=== PATIENT | female | born 1985 | race Caucasian/White ===

== ENCOUNTER 2021-09-08 16:28 | Emergency (ER) | payer MEDICAID ==
[~2021-09-08] VITALS: Ht 168 cm; Wt 79.0 kg
[2021-09-08] MEDS ORDERED: KETOROLAC 30 MG/ML VIAL IVP ONE (17:15)
[2021-09-08] MEDS ORDERED: NS IV 1000 ML 1,000 ML IV SCH (17:15)
[2021-09-08] MEDS ORDERED: ONDANSETRON 4 MG/2 ML (SDV) Z0FRAN IVP ONE (17:15)
[2021-09-08] MEDS ORDERED: GLYCOPYRROLATE 0.2 MG/ML (ROBINUL) 2 ML VIAL IV ONE (17:15)
--- NOTE | 2021-09-08 17:16 | ED Abdominal Pain ---
General Chief Complaint: - Reproductive Stated Complaint: R SIDE PAIN/URINARY PRESSURE/VOMITING Nursing Triage Note: pt states 90 min [employer] started having rt side pain front and back, difficulty urinating just started. Source of Information: Patient Exam Limitations: No Limitations History of Present Illness Date Seen by Provider: Sep 08, 2021 Time Seen by Provider: 17:05 Initial Comments Patient is a 35-year-old female who presents to the emergency department with a chief complaint of right flank pain onset a couple of hours prior to arrival. Patient states she has developed nausea with several bouts of vomiting. She has the urge to urinate but cannot. She denies any GI symptoms other than the vomiting. She has never had pain like this before. Nothing really makes it any better or any worse. She rates it at a "6". She has a history of endometriosis with irregular menstrual cycles. Denies abnormal vaginal discharge. Denies burning with urination. Has the urgency. No fevers, chills, cough or congestion. No prior abdominal surgeries. All other review of systems reviewed and negative except as stated Timing/Duration: 1-3 Hours Severity/Quality: Moderate, Aching Location: RLQ, Flank Radiation: Back Associated Symptoms: Back Pain, Nausea/Vomiting Allergies and Home Medications Allergies Coded Allergies: No Known Drug Allergies (Unverified , 09/08/21) Patient Home Medication List Home Medication List Reviewed: Yes Hydrocodone/Acetaminophen (Hydrocodone-Acetamin 5-325 mg) 5 Mg-325 Mg Tablet, 1 TAB PO Q6H PRN for PAIN-MODERATE (5-7) Prescribed by: LETTY MOSS on 09/08/211807 Ondansetron (Ondansetron Odt) 4 Mg Tab.rapdis, 4 MG PO Q8H PRN for nausea Prescribed by: LETTY MOSS on 09/08/211806 Tamsulosin HCl (Flomax) 0.4 Mg Cap, 0.4 MG PO HS Prescribed by: LETTY MOSS on 09/08/211806 Review of Systems Review of Systems Constitutional: see HPI EENTM: No Symptoms Reported Respiratory: No Symptoms Reported Cardiovascular: No Symptoms Reported Gastrointestinal: Abdominal Pain, Nausea, Vomiting Genitourinary: Urgency Musculoskeletal: back pain Skin: no symptoms reported All Other Systems Reviewed Negative Unless Noted: Yes Past Tglcvji-Wbxwwl-Ejcmal Hx Patient Social History Tobacco Use?: No Substance use?: No Alcohol Use?: Yes Alcohol type: Beer, Wine Alcohol Frequency: Rarely Immunizations Up To Date COVID19 Vaccine [employer]: [email or web address] Past Medical History Surgery/Hospitalization HX: ear Last Menstrual Period: August 08, 2021 Physical Exam Vital Signs Vital Signs - First Documented 09/08/21 16:52 Temp 36.9 Pulse 60 Resp 22 B/P (MAP) 129/81 (97) Pulse Ox 99 O2 Delivery Room Air Capillary Refill : Less Than 3 Seconds Height/Weight/BMI Height: '" Weight: lbs. oz. kg; 27.00 BMI Method: General Appearance: WD/WN, mild distress HEENT: PERRL/EOMI Respiratory: lungs clear, normal breath sounds, no respiratory distress, no accessory muscle use Cardiovascular: regular rate, rhythm Gastrointestinal: soft, tenderness (mild tenderness RLQ) Extremities: normal range of motion, non-tender, normal inspection, no pedal edema, normal capillary refill Back: CVA tenderness (R) (mild) Neurologic/Psychiatric: alert, normal mood/affect, oriented x 3, other (slightly anxious) Skin: normal color, warm/dry Progress/Results/Core Measures Results/Orders Lab Results Laboratory Tests Test 09/08/21 17:17 09/08/21 17:20 Range/Units Sodium Level 138 135-145 MMOL/L Potassium Level 3.6 3.6-5.0 MMOL/L Chloride Level 105 98-107 MMOL/L Carbon Dioxide Level 22 21-32 MMOL/L Anion Gap 11 5-14 MMOL/L Blood Urea Nitrogen 13 7-18 MG/DL Creatinine 0.95 0.60-1.30 MG/DL Estimat Glomerular Filtration Rate 79 BUN/Creatinine Ratio 14 Glucose Level 100 70-105 MG/DL Calcium Level 9.1 8.5-10.1 MG/DL Urine Color YELLOW Urine Clarity CLEAR Urine pH 5.0 5-9 Urine Specific Preston >=1.030 1.016-1.022 Urine Protein NEGATIVE NEGATIVE Urine Glucose (UA) NEGATIVE NEGATIVE Urine Ketones TRACE H NEGATIVE Urine Nitrite NEGATIVE NEGATIVE Urine Bilirubin NEGATIVE NEGATIVE Urine Urobilinogen 0.2 < = 1.0 MG/DL Urine Leukocyte Esterase NEGATIVE NEGATIVE Urine RBC (Auto) NEGATIVE NEGATIVE Urine RBC NONE /HPF Urine WBC RARE /HPF Urine Squamous Epithelial Cells RARE /HPF Urine Crystals NONE /LPF Urine Bacteria TRACE /HPF Urine Casts NONE /LPF Urine Mucus NEGATIVE /LPF Urine Culture Indicated YES My Orders Orders - LETTY MOSS MD Ed Iv/Invasive Line Start (09/08/21 17:11) Basic Metabolic Panel (09/08/21 17:11) Ua Culture If Indicated (09/08/21 17:11) Urine Bedside (09/08/21 17:11) Abdomen/Kub 1view (09/08/21 17:11) Ct Abd/Pelvis Wo(Kidney Stone) (09/08/21 17:11) Ns Iv 1000 Ml (Sodium Chloride 0.9%) (09/08/21 17:15) Ondansetron Injection (Zofran Injectio (09/08/21 17:15) Ketorolac Injection (Toradol Injection) (09/08/21 17:15) Glycopyrrolate Injection (Robinul Inject (09/08/21 17:15) Urine Culture (09/08/21 17:20) Medications Given in ED Current Medications Medications Dose Ordered Sig/Jes Route Start Time Stop Time Status Last Admin Dose Admin Glycopyrrolate 0.2 mg ONCE ONCE IV 09/08/21 17:15 09/08/21 17:16 DC 09/08/21 17:29 0.2 MG Ketorolac Tromethamine 15 mg ONCE ONCE IVP 09/08/21 17:15 09/08/21 17:16 DC 09/08/21 17:21 15 MG Ondansetron HCl 8 mg ONCE ONCE IVP 09/08/21 17:15 09/08/21 17:16 DC 09/08/21 17:21 8 MG Vital Signs/I&O 09/08/21 09/08/21 16:52 17:21 Temp 36.9 36.9 Pulse 60 Resp 22 B/P (MAP) 129/81 (97) Pulse Ox 99 O2 Delivery Room Air Blood Pressure Mean: 97 Progress Progress Note : Time: 18:03 Progress Note Patient feels much improved, pain is down to a "1". We discussed return precaut ions, fever, worsening pain intractable nausea vomiting. I am giving her a cocktail of medications including hydrocodone, Zofran and Flomax. I have encouraged water for hydration as well as straining her urine to note when she passes her stone. She is comfortable with the plan of care. All questions are sought and answered. Patient is stable for discharge. Diagnostic Imaging Diagonstic Imaging: Xray Comments [facility], [place] NAME: JED RILEY [facility] REC#: [id number] PT STATUS: REG ER : 1985 PHYSICIAN: LETTY MOSS MD ADMIT DATE: 09/08/21/ER Draft Date of Exam:09/08/21 ABDOMEN/KUB 1VIEW Clinical indications: Patient with right-sided abdominal pain. No history of stones. Exam: KUB x-ray. Comparison: CT scan of abdomen and pelvis without contrast dated 09/08/2021. Findings: Likely 4 mm stone in the distal right ureter is seen on comparison CT scan overlying the right side of the pelvis. Other calcifications likely represent phleboliths. There is a nonobstructed bowel gas pattern. There is no evidence of abdominal free air. There is subtle left curvature of the lumbar spine. Impression: Small stone in the right low pelvis region is suspected to represent the stone on the comparison CT scan showing stone in the distal right ureter. Dictated on workstation # [id number] Dict: 09/08/21 1750 Trans: 09/08/21 175 [facility] [id number] Interpreted by: DELFINO SCOTT MD Electronically signed by: Diagonstic Imaging: CT Comments [facility], [place] NAME: JED RILEY [facility] REC#: [id number] PT STATUS: REG ER : 1985 PHYSICIAN: LETTY MOSS MD ADMIT DATE: 09/08/21/ER Draft Date of Exam:09/08/21 CT ABD/PELVIS WO(KIDNEY STONE) CLINICAL INDICATION: Patient with right-sided abdominal pain. No history of stones. EXAM: CT exam of the abdomen and pelvis is performed without IV or oral contrast using stone protocol. Coronal and sagittal reformatted images were created. Auto Exposure Controls were utilized during the CT exam to meet ALARA standards for radiation dose reduction. COMPARISONS: None. FINDINGS: Visualized lung bases: Unremarkable. Liver: Unremarkable as visualized. Gallbladder: Unremarkable. Pancreas: Unremarkable as visualized. Spleen: Unremarkable as visualized. Adrenal glands: Unremarkable. Kidneys/ ureters: There is a 4 mm stone in the distal right ureter, which is 1-2 cm from the UVJ. There is associated moderate right hydroureteronephrosis. There are no other urinary tract stones seen. Left kidney is unremarkable. Aorta: Unremarkable as visualized. Intra-abdominal/ retroperitoneal contents: Unremarkable. Intestines: Unremarkable as visualized. Appendix: Unremarkable. Bladder: Unremarkable as visualized. Pelvic organs: There is a 6.8 cm x 5.4 cm x 5.4 cm (AP x Trans x CC) low-density circumscribed lesion in the left adnexal region. Extra abdominal/ pelvis regions: Unremarkable. Abdominal wall: Unremarkable. Bones: Unremarkable. IMPRESSION: 1: There is a 4 mm stone in the distal right ureter with associated moderate right hydroureteronephrosis. There are no other urinary tract stones seen. 2: There is a 6.8 cm circumscribed low-density lesion involving the left adnexal region. Pelvic ultrasound is suggested for further evaluation. Dictated on workstation # [id number] Dict: 09/08/21 1745 Trans: 09/08/21 1754 [id number] Interpreted by: DELFINO SCOTT MD Electronically signed by: Departure Impression Primary Impression: Right kidney stone Disposition: 01 HOME, SELF-CARE Condition: Improved Departure-Patient Inst. Decision time for Depature: 18:05 Referrals: NO,LOCAL PHYSICIAN (PCP/Family) Primary Care Physician Patient Instructions: Kidney Stones (DC) Add. Discharge Instructions: Drink lots of fluids to stay well-hydrated over the next several days. Fixw-rol-krivwlw Aleve, 2 tablets twice daily with food as needed for pain or i buprofen 3 tablets every 6 hours with food as needed for pain. I have also sent you a prescription for hydrocodone as well as nausea medications. Please take the hydrocodone only as needed for more severe pain. Hydrocodone can cause constipation. Make sure you are drinking your water and you should probably also be taking stool softeners if you are having to take the hydrocodone daily. Flomax, 1 tablet at night until you passed your stone. Strain your urine until you pass your stone. Return to the emergency department for increased pain not relieved by prescribed pain medicine, fever over 100.4, worsening nausea or vomiting. you do have a 6cm fluid filled (possible cyst) in the left pelvic region. 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 I am scheduling you for a pelvic ultrasound to get this further evaluated. Scripts Tamsulosin HCl (Flomax) 0.4 Mg Cap 0.4 MG PO HS, #14 CAP Prov: LETTY MOSS MD 09/08/21 Hydrocodone/Acetaminophen (Hydrocodone-Acetamin 5-325 mg) 5 Mg-325 Mg Tablet 1 TAB PO Q6H PRN for PAIN-MODERATE (5-7), #20 TAB Prov: ELTTY MOSS MD 09/08/21 Ondansetron (Ondansetron Odt) 4 Mg Tab.rapdis 4 MG PO Q8H PRN for nausea, #20 TAB Prov: LETTY MOSS MD 09/08/21 LETTY MOSS MD Sep 08, 2021 17:15
[2021-09-08 17:24] LABS: BILIRUBIN,URINE NEGATIVE (NEGATIVE); CLARITY,URINE CLEAR; COLOR,URINE YELLOW; GLUCOSE, URINE (UA) NEGATIVE (NEGATIVE); KETONES,URINE TRACE (NEGATIVE); LEUKOCYTE ESTERASE ,URINE NEGATIVE (NEGATIVE); NITRITE,URINE NEGATIVE (NEGATIVE); PROTEIN,URINE NEGATIVE (NEGATIVE)
[2021-09-08 17:29] LABS: BACTERIA,URINE TRACE /HPF; SQUAMOUS EPITHELIAL CELL,UR RARE /HPF; WBC,URINE RARE /HPF
[2021-09-08 17:33] LABS: POTASSIUM 3.6 MMOL/L (3.6-5.0)
[2021-09-08 17:34] LABS: CALCIUM 9.1 MG/DL (8.5-10.1)
[2021-09-08 17:39] LABS: CREATININE SERUM 0.95 MG/DL (0.60-1.30)
--- NOTE | 2021-09-08 17:54 | Diagnostic Imaging Report ---
Clinical indications: Patient with right-sided abdominal pain. No history of stones. Exam: KUB x-ray. Comparison: CT scan of abdomen and pelvis without contrast dated 09/08/2021. Findings: Likely 4 mm stone in the distal right ureter is seen on comparison CT scan overlying the right side of the pelvis. Other calcifications likely represent phleboliths. There is a nonobstructed bowel gas pattern. There is no evidence of abdominal free air. There is subtle left curvature of the lumbar spine. Impression: Small stone in the right low pelvis region is suspected to represent the stone on the comparison CT scan showing stone in the distal right ureter. Dictated by: Dictated on workstation # [id number]
--- NOTE | 2021-09-08 17:54 | Diagnostic Imaging Report ---
CLINICAL INDICATION: Patient with right-sided abdominal pain. No history of stones. EXAM: CT exam of the abdomen and pelvis is performed without IV or oral contrast using stone protocol. Coronal and sagittal reformatted images were created. Auto Exposure Controls were utilized during the CT exam to meet ALARA standards for radiation dose reduction. COMPARISONS: None. FINDINGS: Visualized lung bases: Unremarkable. Liver: Unremarkable as visualized. Gallbladder: Unremarkable. Pancreas: Unremarkable as visualized. Spleen: Unremarkable as visualized. Adrenal glands: Unremarkable. Kidneys/ ureters: There is a 4 mm stone in the distal right ureter, which is 1-2 cm from the UVJ. There is associated moderate right hydroureteronephrosis. There are no other urinary tract stones seen. Left kidney is unremarkable. Aorta: Unremarkable as visualized. Intra-abdominal/ retroperitoneal contents: Unremarkable. Intestines: Unremarkable as visualized. Appendix: Unremarkable. Bladder: Unremarkable as visualized. Pelvic organs: There is a 6.8 cm x 5.4 cm x 5.4 cm (AP x Trans x CC) low-density circumscribed lesion in the left adnexal region. Extra abdominal/ pelvis regions: Unremarkable. Abdominal wall: Unremarkable. Bones: Unremarkable. IMPRESSION: 1: There is a 4 mm stone in the distal right ureter with associated moderate right hydroureteronephrosis. There are no other urinary tract stones seen. 2: There is a 6.8 cm circumscribed low-density lesion involving the left adnexal region. Pelvic ultrasound is suggested for further evaluation. Dictated by: Dictated on workstation # [id number]
[2021-09-08] MEDS ORDERED: ACHD5005 PO (18:07)
[2021-09-08] MEDS ORDERED: ONDA4TAB11 PO (18:07)
[2021-09-08] MEDS ORDERED: TMSL.4C PO (18:07)
[2021-09-08 18:24] VITALS: BP 121/74
== END 2021-09-08 18:23 | disposition home or self-care (01) ==
LOC: EDUNIT# 16:28 → ER 16:30
DX: N13.2 Hydronephrosis with renal and ureteral calculous obstruction (principal)
CPT/HCPCS: 36415; 74018; 74176; 80048; 81000; 84703; 87088

== ENCOUNTER → 2021-09-11 | Outpatient (CLI) | payer MEDICAID ==
[~2021-09-11] MED LIST: ACHD5005 PO; ONDA4TAB11 PO; TMSL.4C PO
--- NOTE | 2021-09-11 13:22 | Diagnostic Imaging Report ---
PROCEDURE: Pelvic comp/transvaginal sonogram. TECHNIQUE: Complete transabdominal and transvaginal pelvic ultrasound was performed. In addition, limited pelvic Doppler was performed. INDICATION: Pelvic mass on a recent CT study. The study is performed for further evaluation. COMPARISON: Correlation is made with CT exam from 09/08/2021. FINDINGS: Uterus is anteverted measuring 7.4 x 3.4 x 4.7 cm. Endometrium is 5 mm in thickness. There is a small amount fluid in the endocervical canal. Right ovary measures 1.8 x 1.8 x 1.7 cm, and left ovary measures 1.5 x 0.8 x 1.3 cm. There is a cyst in the left adnexa measuring 4.4 x 6.2 x 5.5 cm, correlating with the CT abnormality. There is blood flow to both ovaries. No torsion is seen. There is no free fluid. IMPRESSION: 6.2 x 5.5 cm simple left ovarian cyst, correlating with the CT abnormality. Follow-up ultrasound in 6-8 weeks is recommended to confirm clearing. Dictated by: Dictated on workstation # [id number]
== END ==
LOC: RAD 11:00
PROVIDERS: ATTEND Emergency Medicine
DX: N83.202 Unspecified ovarian cyst, left side (principal)
CPT/HCPCS: 76830; 76856